=== PATIENT | female | born 1970 | race Caucasian/White ===

== ENCOUNTER 2017-08-26 18:28 | Emergency (ER) | payer SELFPAY ==
--- NOTE | 2017-08-26 20:46 | RAD ---
TWO VIEWS CHEST 08/26/17 HISTORY: Cough, malaise, AP and lateral views of the chest is obtained on 08/26/17. Comparison made to previous exam from 01/11/17. Two views chest demonstrate the lungs to be well aerated. No evidence of active intrathoracic disease is seen. No evidence of effusions, pneumonia, or pneumothorax seen. IMPRESSION: Normal two views chest. POS: [facility]
[2017-08-26] MEDS ORDERED: Dexamethasone 4 mg/ml Vial ONE (21:03)
== END 2017-08-26 21:59 | disposition home or self-care (01) ==
LOC: ERS 18:28
DX: J06.9 Acute upper respiratory infection, unspecified (principal); F17.210 Nicotine dependence, cigarettes, uncomplicated
CPT/HCPCS: 71020; 94640; 99406; J1100; J7620

== ENCOUNTER 2018-06-02 17:43 | Emergency (ER) | payer SELFPAY ==
[2018-06-02] MEDS ORDERED: methylPREDNISolone Sod Succ/PF 125 MG/2 ML VIAL ONE (18:38)
[2018-06-02 18:46] LABS: #Basophils 0.1 thou/uL (0.0-0.2); #Lymphocytes 2.5 thou/uL (1.20-3.40); #Monocytes 0.4 thou/uL (0.11-0.59); #Neutrophils 4.9 thou/uL (1.40-6.50); %Basophils 0.9 % (0.0-1.0); %Eosinophils 0.5 % (0.0-10.0); %Monocytes 5.4 % (0.0-10.0); %Neutrophils 62.2 % (42.0-75.0); Mean Corpuscular HGB CONC 33.5 g/dL (32.0-36.0); Mean Corpuscular Hemoglobin 32.6 pg (27.0-31.0); Mean Corpuscular Volume 97.2 fL (78.0-98.0); Mean Platelet Volume 6.7 fL (7.4-10.4); Platelet Count 341 thou/uL (130-400); RBC Distribution Width 11.7 % (11.5-14.5); White Blood Cell (WBC) Count 7.9 thou/uL (4.8-10.8)
--- NOTE | 2018-06-02 18:56 | RAD ---
AP VIEW CHEST: 06/02/18 HISTORY: Cough. AP view chest is obtained on 06/02/18. Comparison made to previous exam from 01/11/17. AP view chest demonstrates the lungs to be well aerated. No evidence of active intrathoracic disease seen. No evidence of effusions, pneumonia or pneumothorax seen. IMPRESSION: Unremarkable AP view chest. POS: [facility]
[2018-06-02 19:06] LABS: ALT (SGPT) Less than 7 U/L (8-55); AST (SGOT) 14 U/L (5-34); Albumin 4.6 g/dL (3.5-5.0); Alkaline Phosphatase 83 U/L (40-150); Anion Gap 12 mmol/L (10-20); BUN (Urea Nitrogen) 11 mg/dL (7.0-18.7); Bilirubin, Total 0.3 mg/dL (0.2-1.2); Calc. Creatinine Clearance 0 mL/min (70-130); Calcium 9.8 mg/dL (7.8-10.44); Carbon Dioxide 25 mmol/L (22-29); Chloride 102 mmol/L (98-107); Estimated GFR-MDRD 83; Globulin 4.1 g/dL (2.4-3.5); Glucose 92 mg/dL (70-105); Potassium 3.8 mmol/L (3.5-5.1); Protein, Total 8.7 g/dL (6.0-8.3); Sodium 135 mmol/L (136-145)
[2018-06-02 19:11] LABS: CKMB 0.6 ng/mL (0-6.6); Troponin I Less than 0.010 ng/mL (< 0.028)
[2018-06-02] MEDS ORDERED: STERILE WATER IVPB SCH (20:00)
[2018-06-02] MEDS ORDERED: CEFTRIAXONE ROCEPHIN IVPB SCH (20:00)
[2018-06-02] MEDS ORDERED: Azithromycin 250 MG TAB ONE (20:11)
--- NOTE | 2018-06-05 13:29 | EKG ---
Test Reason : Blood Pressure : / mmHG Vent. Rate : 095 BPM Atrial Rate : 095 BPM P-R Int : 164 ms QRS Dur : 078 ms QT Int : 348 ms P-R-T Axes : 066 068 040 degrees QTc Int : 437 ms Normal sinus rhythm Normal ECG Confirmed by ESTEPHANIE SALINAS ([id number]), acquisition editor RE GODWIN ([id number]) on 06/05/2018 1:28:44 PM Referred By: Confirmed By:ESTEPHANIE SALINAS
== END 2018-06-02 20:24 | disposition home or self-care (01) ==
LOC: ERS 17:43
DX: J40 Bronchitis, not specified as acute or chronic (principal); Z71.6 Tobacco abuse counseling; F17.210 Nicotine dependence, cigarettes, uncomplicated
CPT/HCPCS: 71045; 80053; 82553; 83880; 84484; 85025; 87804; 93005; 96374; 96375; 99406; A4216; J0696; J2930

== ENCOUNTER 2018-06-12 19:10 | Emergency (ER) | payer SELFPAY | END 2018-06-12 21:44 | disposition home or self-care (01) | LOC: ERS 19:10 | DX: S13.4XXA Sprain of ligaments of cervical spine, initial encounter (principal); I10 Essential (primary) hypertension; J44.9 Chronic obstructive pulmonary disease, unspecified; F17.210 Nicotine dependence, cigarettes, uncomplicated; Z79.899 Other long term (current) drug therapy; V43.62XA Car passenger injured in collision with other type car in traffic accident, initial encounter | CPT/HCPCS: 93005 ==

== ENCOUNTER 2018-11-25 10:00 | Observation (INO) | payer SELFPAY ==
[2018-11-25 10:32] LABS: #Lymphocytes 1.2 thou/uL (1.20-3.40); #Monocytes 0.6 thou/uL (0.11-0.59); %Basophils 0.3 % (0.0-1.0); %Eosinophils 0.3 % (0.0-10.0); %Lymphocytes 10.4 % (21.0-51.0); %Monocytes 4.7 % (0.0-10.0); %Neutrophils 84.3 % (42.0-75.0); Hemoglobin 13.9 g/dL (12.0-16.0); Mean Corpuscular HGB CONC 32.1 g/dL (32.0-36.0); Mean Corpuscular Hemoglobin 31.7 pg (27.0-31.0); Mean Corpuscular Volume 98.5 fL (78.0-98.0); Mean Platelet Volume 6.6 fL (7.4-10.4); Platelet Count 326 thou/uL (130-400); RBC Distribution Width 12.4 % (11.5-14.5); White Blood Cell (WBC) Count 11.8 thou/uL (4.8-10.8)
[2018-11-25] MEDS ORDERED: methylPREDNISolone Sod Succ/PF 125 MG/2 ML VIAL ONE (10:36)
[2018-11-25] MEDS ORDERED: Azithromycin 500 MG VIAL ONE (10:36)
[2018-11-25] MEDS ORDERED: Ketorolac Tromethamine 30 MG/ML VIAL ONE (10:44)
--- NOTE | 2018-11-25 10:50 | RAD ---
PORTABLE CHEST: Date: 11/25/18 PROVIDED CLINICAL HISTORY: Cough and shortness of breath. FINDINGS: Comparison with 06/02/18. Cardiac and mediastinal silhouette is unchanged in appearance. No focal consolidation, pleural fluid, or pneumothorax apparent. IMPRESSION: No evidence for acute cardiopulmonary process. POS: OFF
[2018-11-25 10:59] LABS: ALT (SGPT) 7 U/L (8-55); AST (SGOT) 16 U/L (5-34); Albumin 4.1 g/dL (3.5-5.0); Alkaline Phosphatase 85 U/L (40-150); Anion Gap 17 mmol/L (10-20); BUN (Urea Nitrogen) 11 mg/dL (7.0-18.7); Bilirubin, Total 0.4 mg/dL (0.2-1.2); Calc. Creatinine Clearance 0 mL/min (70-130); Calcium 9.5 mg/dL (7.8-10.44); Carbon Dioxide 19 mmol/L (22-29); Chloride 101 mmol/L (98-107); Estimated GFR-MDRD Greater than 90; Glucose 127 mg/dL (70-105); Potassium 3.5 mmol/L (3.5-5.1); Protein, Total 7.1 g/dL (6.0-8.3); Sodium 133 mmol/L (136-145)
[2018-11-25 13:48] VITALS: BMI 17.8
[2018-11-25] MEDS ORDERED: Ondansetron PF 4 MG/2 ML Vial IVP PRN (16:35)
[2018-11-25] MEDS ORDERED: Acetaminophen 500 MG TAB PO PRN (16:35)
[2018-11-25] MEDS ORDERED: Benzonatate 100 MG CAP PO PRN (16:35)
[2018-11-25] MEDS ORDERED: Acetaminophen/Codeine 30-300mg Tablet PO PRN (16:35)
[2018-11-25] MEDS ORDERED: Guaifenesin DM 100-10/5 ML UDCUP PO PRN (16:35)
[2018-11-25] MEDS ORDERED: Ondansetron ODT 4 MG TAB PO PRN (16:35)
[2018-11-25] MEDS: methylPREDNISolone Sod Succ 40 MG VIAL IVP SCH ×2 (17:26→23:58)
[2018-11-25] MEDS ORDERED: Nicotine 14 MG PATCH TD SCH (18:00)
[2018-11-25] MEDS ORDERED: Mometasone/Formoterol 120 PUFF INHALER INH PRN (18:30)
[2018-11-25] MEDS ORDERED: Ketorolac Tromethamine 30 MG/ML VIAL IVP PRN (20:06)
[2018-11-25] MEDS: Amoxicillin/Potassium Clav 875 MG TAB PO SCH (20:14)
[2018-11-25] MEDS: Famotidine 20 MG TAB PO SCH (20:14)
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
[2018-11-25] MEDS: Acetaminophen/Codeine 30-300mg Tablet PO PRN (23:58)
[2018-11-26] MEDS: methylPREDNISolone Sod Succ 40 MG VIAL IVP SCH (05:47)
[2018-11-26] MEDS: Acetaminophen/Codeine 30-300mg Tablet PO PRN (06:48)
[2018-11-26 06:49] LABS: Anion Gap 13 mmol/L (10-20); BUN (Urea Nitrogen) 9 mg/dL (7.0-18.7); Calc. Creatinine Clearance 86 mL/min (70-130); Calcium 9.2 mg/dL (7.8-10.44); Carbon Dioxide 21 mmol/L (22-29); Chloride 103 mmol/L (98-107); Estimated GFR-MDRD Greater than 90; Glucose 153 mg/dL (70-105); Potassium 3.5 mmol/L (3.5-5.1); Sodium 133 mmol/L (136-145)
[2018-11-26 06:54] LABS: Band 23 % (5-11); Hemoglobin 11.6 g/dL (12.0-16.0); Lymphocytes 6 % (21-51); MDiff Complete? YES; Mean Corpuscular HGB CONC 33.1 g/dL (32.0-36.0); Mean Corpuscular Hemoglobin 32.2 pg (27.0-31.0); Mean Corpuscular Volume 97.4 fL (78.0-98.0); Mean Platelet Volume 6.6 fL (7.4-10.4); Neutrophil 71 % (42-75); Platelet Count 289 thou/uL (130-400); RBC Distribution Width 12.2 % (11.5-14.5); Red Blood Cell (RBC) Count 3.59 mill/uL (4.20-5.40); White Blood Cell (WBC) Count 10.6 thou/uL (4.8-10.8)
[2018-11-26] MEDS ORDERED: Amlodipine 10 MG TAB PO SCH (09:00)
[2018-11-26] MEDS: Famotidine 20 MG TAB PO SCH (09:20)
[2018-11-26] MEDS: Amoxicillin/Potassium Clav 875 MG TAB PO SCH (09:20)
[2018-11-26 10:49] VITALS: BP 147/71; TEMP 98
--- NOTE | 2018-11-26 11:20 | DIS ---
DATE OF ADMISSION: 11/25/2018 DATE OF DISCHARGE: 11/26/2018 PRIMARY CARE PHYSICIAN: Dr. Carolina Paz. DISCHARGE DISPOSITION: Home. PRIMARY DISCHARGE DIAGNOSIS: Chronic obstructive pulmonary disease exacerbation, controlled. SECONDARY DISCHARGE DIAGNOSES: Hypertension; tobacco abuse disorder; protein calorie malnutrition, moderate. PRIMARY PROCEDURE/OPERATION: None. RADIOLOGICAL INVESTIGATION: Chest x-ray showed COPD changes. SIGNIFICANT LABORATORY DATA: WBC 10.6, hemoglobin 11.6, platelets 289. Sodium 133, potassium 3.5, BUN 9, creatinine 0.60, calcium 9.2. LFT normal. Cardiac enzyme negative. DISCHARGE MEDICATIONS: 1. Amlodipine 10 mg p.o. daily. 2. Symbicort 160/4.5 two puffs inhalation b.i.d. 3. Ventolin HFA two puffs q.6 hourly p.r.n. 4. Augmentin 875 mg p.o. b.i.d. 5. Mucinex 600 mg p.o. b.i.d. 6. Atrovent HFA 2 puffs q.i.d. 7. Prednisone 20 mg p.o. b.i.d. for 5 days, then 20 mg p.o. daily for 5 days, and then 10 mg p.o. for 5 days. CONTRAINDICATION: None. CODE STATUS: Full code. INPATIENT BAND AID MACHINE OPERATOR: None. ALLERGIES: PROMETHAZINE, TRAMADOL. DISCHARGE PLAN: Posthospital, the patient will follow up with primary care physician in one week. HOSPITAL COURSE: A 48-year-old female, who was admitted by Dr. Lopez. Please see his H and P for further details. This patient has ongoing tobacco abuse disorder and she has underlying COPD. She was admitted for increasing shortness of breath. She was found with mild COPD exacerbation. She was treated with steroid, empiric antibiotic therapy, and Dulera. The patient's condition significantly improved. She was on room air. She was ambulatory. She was able to talk in full sentence. The patient expressed her wish to go home today. I have given counseling to avoid smoking. The patient is seen and examined at bedside today. Plan of care discussed with the patient and family member. PHYSICAL EXAMINATION: VITAL SIGNS: Currently temperature 97.9, pulse 105, respiratory rate 16, saturation 92% on room air, blood pressure 125/68. Weight 107 pounds. GENERAL: The patient is currently alert, awake. No obvious acute distress. HEENT: Head, normocephalic and atraumatic. LUNGS: Clear to auscultation without any rhonchi or rales. CARDIAC: S1 and S2. Regular without any murmur. ABDOMEN: Soft and benign. EXTREMITIES: No edema. NEUROLOGIC: Nonfocal. The patient is medically stable for discharge today. Job ID: [id number]
--- NOTE | 2018-11-27 12:04 | EKG ---
Test Reason : SOB Blood Pressure : / mmHG Vent. Rate : 098 BPM Atrial Rate : 098 BPM P-R Int : 166 ms QRS Dur : 080 ms QT Int : 350 ms P-R-T Axes : 072 072 041 degrees QTc Int : 446 ms Normal sinus rhythm Normal ECG Confirmed by SHAREE NORIEGA DO ([id number]), editorial assistant RE GODWIN ([id number]) on 11/27/2018 12:03:42 PM Referred By: Confirmed By:SHAREE NORIEGA DO
== END 2018-11-26 11:31 | disposition home or self-care (01) ==
LOC: ERS 10:00 → T4-B 11:58
PROVIDERS: ADMIT Family Medicine; ATTEND Family Medicine
DX: J44.1 Chronic obstructive pulmonary disease with (acute) exacerbation (principal); I10 Essential (primary) hypertension; E87.1 Hypo-osmolality and hyponatremia; F17.210 Nicotine dependence, cigarettes, uncomplicated; E44.0 Moderate protein-calorie malnutrition; Z68.1 Body mass index [BMI] 19.9 or less, adult; Z79.899 Other long term (current) drug therapy; Z88.5 Allergy status to narcotic agent; Z88.8 Allergy status to other drugs, medicaments and biological substances
CPT/HCPCS: 36415; 71045; 80048; 80053; 84484; 85007; 85025; 85027; 87804; 93005; 94640; 94760; 96361; 96365; 96375; 96376; G0378; J0456; J1885; J2920; J2930; J7620

== ENCOUNTER 2019-06-21 10:04 | Emergency (ER) | payer SELFPAY | END 2019-06-21 10:27 | disposition left against medical advice (07) | LOC: ERS 10:04 | DX: Z53.21 Procedure and treatment not carried out due to patient leaving prior to being seen by health care provider (principal) ==

== ENCOUNTER 2019-06-21 11:19 | Emergency (ER) | payer SELFPAY ==
--- NOTE | 2019-06-21 12:17 | RAD ---
LEFT SHOULDER 3 VIEWS: Date: 06/21/19 HISTORY: Left shoulder pain. FINDINGS/IMPRESSION: No acute fracture, dislocation, or bony destruction seen. There are degenerative changes in the acrom ioclavicular joint. Calcification in the rotator cuff is consistent with calcific tendinosis. POS: OFF
== END 2019-06-21 12:48 | disposition home or self-care (01) ==
LOC: ERS 11:19
DX: M25.512 Pain in left shoulder (principal); M25.511 Pain in right shoulder; I10 Essential (primary) hypertension; J44.9 Chronic obstructive pulmonary disease, unspecified; F17.210 Nicotine dependence, cigarettes, uncomplicated

== ENCOUNTER 2019-11-19 14:12 | Emergency (ER) | payer SELFPAY ==
--- NOTE | 2019-11-19 15:16 | RAD ---
EXAM: Two views chest PROVIDED CLINICAL HISTORY: Cough COMPARISON: 11/25/2018 FINDINGS: Cardiac and mediastinal silhouette appears within normal limits. Lungs appear free of significant opa city. No pleural fluid or pneumothorax apparent. Chronic obstructive changes are redemonstrated. IMPRESSION: No evidence for an acute cardiopulmonary process.
== END 2019-11-19 16:58 | disposition home or self-care (01) ==
LOC: ERS 14:12
DX: J20.9 Acute bronchitis, unspecified (principal); J44.0 Chronic obstructive pulmonary disease with (acute) lower respiratory infection; I10 Essential (primary) hypertension; F17.210 Nicotine dependence, cigarettes, uncomplicated; Z79.899 Other long term (current) drug therapy
CPT/HCPCS: 71046

== ENCOUNTER 2021-05-03 11:30 | Emergency (ER) | payer SELFPAY ==
[2021-05-03] MEDS ORDERED: HYDROcodone/Acetaminophen 5/325 mg Tablet ONE (13:07)
== END 2021-05-03 13:35 | disposition home or self-care (01) ==
LOC: ERS 11:30
DX: M54.5 Low back pain (principal); R00.0 Tachycardia, unspecified; I10 Essential (primary) hypertension; J44.9 Chronic obstructive pulmonary disease, unspecified; Z87.891 Personal history of nicotine dependence; Z79.899 Other long term (current) drug therapy
CPT/HCPCS: 99283

== ENCOUNTER 2022-01-25 12:17 | Emergency (ER) | payer SELFPAY ==
[2022-01-25] MEDS ORDERED: HYDROcodone/Acetaminophen 5/325 mg Tablet ONE (12:40)
== END 2022-01-25 13:39 | disposition home or self-care (01) ==
LOC: ERS 12:17
DX: M25.552 Pain in left hip (principal); M62.838 Other muscle spasm; I10 Essential (primary) hypertension; J44.9 Chronic obstructive pulmonary disease, unspecified; Z87.891 Personal history of nicotine dependence

== ENCOUNTER 2022-06-17 10:12 | Emergency (ER) | payer SELFPAY ==
[2022-06-17] MEDS ORDERED: Dexameth. Sod Phosp. 10 MG/ML (CHEMO USE ONLY) ONE (12:22)
[2022-06-17] MEDS ORDERED: Ketorolac Tromethamine 30 MG/ML VIAL ONE (12:22)
== END 2022-06-17 12:31 | disposition home or self-care (01) ==
LOC: ERS 10:12
DX: M54.42 Lumbago with sciatica, left side (principal)
CPT/HCPCS: 96372; 99283; J1100; J1885